=== PATIENT | female | born 1945 | race Caucasian/White ===

== ENCOUNTER 2019-09-07 08:00 | Emergency (ER) | payer OTHER ==
[~2019-09-07] VITALS: Ht 157.5 cm; Wt 50.8 kg
[~2019-09-07 08:00] MED LIST: AQUASOL E15 IU/0.3; AZOPT10 ML; LATANOPROST2.5 ML; TOPROL XL100 M1; VANDAZOLE70 GM
[2019-09-07] MEDS ORDERED: ARICEPT10 MG (08:21)
== END 2019-09-07 11:53 | disposition home or self-care (01) ==
LOC: ER 08:00
DX: R42 Dizziness and giddiness (principal)

== ENCOUNTER 2021-06-23 09:01 | Emergency (ER) | payer OTHER ==
[~2021-06-23] VITALS: Ht 160 cm; Wt 53.5 kg
[~2021-06-23 09:01] MED LIST changes: +ARICEPT10 MG
[2021-06-23] MEDS ORDERED: CIPRO500 MG PO (12:10)
== END 2021-06-23 13:40 | disposition home or self-care (01) ==
LOC: ER 09:01
DX: M54.5 Low back pain (principal); R53.81 Other malaise; Z11.52 Encounter for screening for COVID-19